=== PATIENT | female | born 1975 | race Hispanic/Latino ===

== ENCOUNTER 2016-10-03 11:54 | Outpatient (CLI) | payer BC ==
[2016-10-03 12:27] LABS: #Basophils 0.2 thou/uL (0.0-0.2); #Eosinphils 0.3 thou/uL (0.0-0.7); #Lymphocytes 3.3 thou/uL (1.20-3.40); #Monocytes 0.5 thou/uL (0.11-0.59); #Neutrophils 6.5 thou/uL (1.40-6.50); %Basophils 1.5 % (0.0-1.0); %Eosinophils 2.6 % (0.0-10.0); %Lymphocytes 30.4 % (21.0-51.0); %Neutrophils 60.4 % (42.0-75.0); Hemoglobin 14.3 g/dL (12.0-16.0); Mean Corpuscular HGB CONC 32.4 g/dL (32.0-36.0); Mean Corpuscular Hemoglobin 28.8 pg (27.0-31.0); Mean Platelet Volume 9.8 fL (7.4-10.4); Platelet Count 313 thou/uL (130-400); RBC Distribution Width 11.3 % (11.5-14.5); Red Blood Cell (RBC) Count 4.95 mill/uL (4.20-5.40); White Blood Cell (WBC) Count 10.7 thou/uL (4.8-10.8)
[2016-10-03 13:56] LABS: ALT (SGPT) 58 U/L (8-55); AST (SGOT) 23 U/L (5-34); Albumin 4.1 g/dL (3.5-5.0); Alkaline Phosphatase 129 U/L (40-150); Anion Gap 17 mmol/L (10-20); BUN (Urea Nitrogen) 9 mg/dL (7.0-18.7); Bilirubin, Direct 0.2 mg/dL (0.1-0.3); Bilirubin, Total 0.5 mg/dL (0.2-1.2); Calc. Creatinine Clearance 0 mL/min (70-130); Calcium 9.2 mg/dL (7.8-10.44); Carbon Dioxide 21 mmol/L (22-29); Cardiac Risk 4.5 (Less than 4.5); Chloride 101 mmol/L (98-107); Cholesterol 166 mg/dl (< 200 Desired); Estimated GFR-MDRD 88; Glucose 362 mg/dL (70-105); HDL Cholesterol 37 mg/dL (>60 Neg Risk); LDL Cholesterol, Calculated 105 mg/dL; Phosphorus 3.4 mg/dL (2.3-4.7); Potassium 4.3 mmol/L (3.5-5.1); Protein, Total 7.6 g/dL (6.0-8.3); Sodium 135 mmol/L (136-145); Triglycerides 119 mg/dL (Less than 150)
[2016-10-03 13:57] LABS: Hemoglobin A1c 11.5 % (4.0-6.0)
== END 2016-10-03 11:55 | disposition home or self-care (01) ==
LOC: NAVSJIPCSP 11:54
PROVIDERS: ATTEND Nurse Practitioner Family
DX: R74.8 Abnormal levels of other serum enzymes (principal); Z79.899 Other long term (current) drug therapy
CPT/HCPCS: 36415; 80048; 80061; 80076; 83036; 84100; 84443; 85025

== ENCOUNTER 2018-01-01 10:55 | Outpatient (CLI) | payer BC, OTHER ==
--- NOTE | 2018-01-01 12:26 | RAD ---
RIGHT HIP TWO VIEWS: Indication: Right hip pain for two weeks. Comparison: None. FINDINGS: There is mild degenerative arthrosis of the right hip. No acute fracture or subluxation is identified . IMPRESSION: Mild degenerative arthrosis of the right hip. POS: GRETCHEN
== END 2018-01-01 10:56 | disposition home or self-care (01) ==
LOC: NAV LAB 10:55
PROVIDERS: ATTEND Nurse Practitioner Adult Health
DX: M25.551 Pain in right hip (principal); M16.11 Unilateral primary osteoarthritis, right hip

== ENCOUNTER 2019-12-16 15:39 | Outpatient (CLI) | payer BC ==
--- NOTE | 2019-12-16 16:34 | RAD ---
LUMBAR SPINE THREE VIEWS: History: Back pain. FINDINGS: Some generalized disc osteophytosis and facet arthrosis changes are noted. No significant malalignmen t. No acute fracture or dislocation. IMPRESSION: Generalized spondylosis. POS: RRE
--- NOTE | 2019-12-16 16:37 | RAD ---
SACRUM AND COCCYX 3 VIEWS: Date: 12/16/2019 HISTORY: Back pain. FINDINGS: Mild sclerosis of the medial left ilium, nonspecific. Conceivably this could represent an area of ins ufficiency fracture. No evidence for malalignment. Visualized hips appear unremarkable. No overt sacr al or coccygeal displaced fracture or dislocation. IMPRESSION: Focal area of sclerosis involving the medial aspect of the left ilium bone. Etiology is uncertain. Co nceivably, this could represent a small insufficiency or stress-type fracture with associated reactio n. If that is a concern or if the patient has persistent or worsening nonresolving sacral or coccygea l region pain, a follow-up MRI exam is suggested for further assessment. If a MRI cannot be performed , consideration for bone scan might be of benefit. POS: RRE
== END 2019-12-16 15:40 | disposition home or self-care (01) ==
LOC: NAV RAD 15:39
PROVIDERS: ATTEND Nurse Practitioner Adult Health
DX: M54.5 Low back pain (principal); M47.816 Spondylosis without myelopathy or radiculopathy, lumbar region; M89.9 Disorder of bone, unspecified
CPT/HCPCS: 72100; 72220